=== PATIENT | female | born 1955 | race Caucasian/White ===

== ENCOUNTER → 2020-02-10 12:49 | Outpatient (CLI) | payer BC, SELFPAY ==
--- NOTE | 2020-02-10 | DI.MG.S_ITS ---
BILATERAL DIGITAL SCREENING MAMMOGRAM 3D/2D WITH CAD: 02/10/2020 CLINICAL: Baseline exam. Routine screening. No prior exams were available for comparison. The tissue of both breasts is heterogeneously dense. This may lower the sensitivity of mammography. Current study was also evaluated with a Computer Aided Detection (CAD) system. There are grouped heterogeneous calcifications in the right breast at 11 o'clock middle depth with possible associated oval focal asymmetry. There also is a 0.8 cm oval focal asymmetry in the right breast at 7 o'clock anterior depth. Additionally, there is a 1 cm oval focal asymmetry in the right breast at 5 o'clock anterior depth. There is a 1.9 cm oval focal asymmetry in the left breast at 7 o'clock in the retroareolar region. There also is a 1.3 cm oval focal asymmetry in the left breast at 4 o'clock anterior depth. No other significant masses or calcifications are seen in either breast. IMPRESSION: INCOMPLETE: NEEDS ADDITIONAL IMAGING EVALUATION The grouped heterogeneous calcifications in the right breast at 11 o'clock middle depth are indeterminate. Mediolateral and spot magnification views as well as additional views with possible ultrasound are recommended. The 0.8 cm oval focal asymmetry in the right breast at 7 o'clock anterior depth is indeterminate. Additional views with possible ultrasound are recommended. The 1 cm oval focal asymmetry in the right breast at 5 o'clock anterior depth resembles a cyst and is indeterminate. Additional views with possible ultrasound are recommended. The 1.9 cm oval focal asymmetry in the left breast at 7 o'clock in the retroareolar region resembles a cyst and is indeterminate. Additional views with possible ultrasound are recommended. The 1.3 cm oval focal asymmetry in the left breast at 4 o'clock anterior depth resembles a cyst and is indeterminate. Additional views with possible ultrasound are recommended. This exam was interpreted at Station ID: [id number]. NOTE: For mammograms, a report in lay terms will be sent to the patient. Approximately 15% of breast malignancies will not be visualized mammographically. In the management of a palpable breast mass, a negative mammogram must not discourage biopsy of a clinically suspicious lesion. Electronically Signed By: Steven Pena M.D. aty/:02/12/2020 07:51:47 copy to: Erica Tineo letter sent: Additional Imaging Needed ACR BI-RADS Category 0: Incomplete [id number]
== END ==
PROVIDERS: PCP Family Medicine; Referring Provider Family Medicine; Visit Provider Family Medicine
DX: Z12.31 Encounter for screening mammogram for malignant neoplasm of breast (principal)
CPT/HCPCS: 77063; 77067

== ENCOUNTER → 2024-07-28 08:28 | Outpatient (CLI) | payer MEDICARE, BC, SELFPAY ==
--- NOTE | 2024-07-28 08:32 | DI.MRI.S_ITS ---
PROCEDURE: MR SHOULDER LT WO CON INDICATIONS: Pain in left shoulder TECHNIQUE: Noncontrast oblique coronal T2 fast spin echo with fat saturation, oblique sagittal T1 spin echo and T2 fast spin echo with fat saturation, axial T1 spin echo and T2 fast spin echo with fat saturation through the shoulder. COMPARISON: None. FINDINGS: Image quality: Excellent. Rotator cuff: Mild tendinosis supraspinatus and infraspinatus. There is focal, high-grade, articular sided tear at the critical zone of the posterior supraspinatus (8:9). No tear of the infraspinatus. The teres minor is unremarkable. Mild tendinosis of the subscapularis, with low-grade articular sided tear. No muscle edema or fatty atrophy. Bones and bursae: Mild degenerative changes of the acromioclavicular joint with capsular hypertrophy. Type 1 acromion. No os acromiale. Mild subacromial/subdeltoid bursitis. Multifocal mild subchondral cystic changes at the posterior aspect of the humeral head, nonspecific and may be reactive. No acute fracture. No focal chondral defect of the glenohumeral articulation. Capsule and soft tissues: Superior labral tear, extending anteriorly to the anterior labrum. 3 mm paralabral cyst about the anterior superior labrum. Mild tenosynovitis of the extra-articular biceps tendon. The extra-articular biceps tendon is intact. Mild tendinosis of the intra-articular biceps tendon. No significant glenohumeral effusion. No subcoracoid bursitis. No intra-articular body. IMPRESSION: 1. Mild degenerative changes of the acromioclavicular joint. 2. Focal high-grade tear at the posterior supraspinatus. 3. Low-grade tear of the subscapularis. 4. Labral tear with 3 mm paralabral cyst. 5. Mild tenosynovitis of the extra-articular biceps tendon. Dictated by: Jessie Foster M.D. on 07/28/2024 at 13:06 Approved by: Jessie Foster M.D. on 07/28/2024 at 13:13
== END ==
PROVIDERS: PCP Family Medicine; Referring Provider Physician Assistant; Visit Provider Physician Assistant
DX: M75.112 Incomplete rotator cuff tear or rupture of left shoulder, not specified as traumatic (principal); S43.432A Superior glenoid labrum lesion of left shoulder, initial encounter; M65.912 Unspecified synovitis and tenosynovitis, left shoulder; M75.42 Impingement syndrome of left shoulder; M25.512 Pain in left shoulder; G89.29 Other chronic pain
CPT/HCPCS: 73221